=== PATIENT | male | born 1965 | race Caucasian/White ===

== ENCOUNTER 2020-06-26 10:06 | Day surgery (SDC) | payer BC, SELFPAY ==
[2020-06-20 11:34] VITALS: BMI 23.7
[2020-06-26 10:22] VITALS: BP 138/81; PULSE 64; RESP 18; TEMP 36.6; O2SAT 97
--- NOTE | 2020-06-26 11:01 | MHC.SHP ---
Pre-Procedural Eval Section B Chief Complaint: SCREENING Relevant Family History (Specify if Yes): No Relevant Social History: None Present Medications: None Medical History: Significant History (HTN) History of Previous Operations: Relevant previous surgery/procedure and date(s) (inguinal hernia, joint surgeries) Allergies: Allergies Allergy/AdvReac Type Severity Reaction Status Date / Time No Known Allergies Allergy Unverified 06/20/20 11:32 [No Known Allergies*] Review of Systems Sugical H&P ROS: Negative: Constitution, Cardiovascular, Respiratory, Neurological, Psychiatric, Hem-Onc, Allergic/Immunologic, Gastrointestinal, Genitourinary, Musculoskeletal, Integumentary, Endocrine and Eyes/Ears/Nose/Throat Exam Surgical H&P Exam: Normal: HEENT, Normal: Heart, Normal: Lungs, Normal: Extremities, Normal: Abdomen, Normal: Skin and Normal: Neurological Plan Diagnosis/Plan: Unchanged Patient has been examined and remains a candidate for the planned procedure
--- NOTE | 2020-06-26 11:05 | PM.OP ---
Brief Operative Note Date of Service: 06/26/20 Pre-op diagnosis: colon screen Post-op diagnosis: same Procedure: see op note Surgeon: Nathaniel Red MD Anesthesia: MAC Estimated blood loss (mL): 0 Condition: stable Disposition: PACU
--- NOTE | 2020-06-26 11:06 | W.PM.OPN ---
Operative Note Operative Note Date of Service: 06/26/20 Narrative: Operative Information Procedure Description: Colonoscopy COLONOSCOPY Instrument: Olympus variable stiffness pediatric scope 190L Colonoscopy Monitoring: Vital signs and clinical assessment, continuous EKG monitoring, Pulse oximetry, Carbon Dioxide monitoring and blood pressure monitoring were done throughout the procedure. Colon withdrawal time was 8 minutes. Procedure: The patient was placed in the left lateral decubitis position and pre-procedure medications were administered. After a digital rectal examination of the ano-rectum, the video colonoscope was inserted into the rectum and advanced through the colon to the cecum/TI. The colonoscope was slowly withdrawn in a retrograde panoramic fashion and the colon mucosa was carefully examined including a retroflexed view of the rectum. Findings and interventions are described below. Procedure Difficulty:easy Findings: Terminal Ileum-normal Cecum:normal Ascending Colon: normal Transverse Colon -normal Descending Colon:normal Sigmoid Colon: normal Rectum: Retroflexion with small internal hemorrhoids, grade I Anorectum - normal Colon preparation: [place] Bowel Preparation Scale Right colon; 3 Transverse colon: 2 Left colon; 2 (0 = Unprepared colon segment with mucosa not seen due to solid stool that cannot be cleared. 1 = Portion of mucosa of the colon segment seen, but other areas of the colon segment not well seen due to staining, residual stool and/or opaque liquid. 2 = Minor amount of residual staining, small fragments of stool and/or opaque liquid, but mucosa of colon segment seen well. 3 = Entire mucosa of colon segment seen well with no residual staining, small fragments of stool or opaque liquid) Impression and Post Procedure Diagnosis: small internal hemorrhoids Plan: High fiber diet leaflet Avoid straining at stool, epsom salts and sitz bath prn, anusol supps or cream prn Repeat Colonoscopy in 10 years or earlier if clinically indicated Above findings were reviewed with the patient and relevant handouts were provided if indicated.
--- NOTE | 2020-06-26 11:10 | HO.ANESPROP2 ---
Documented by User: Bentley Doe 06/26/20 12:16 [facility] Past Medical History Medical History HTN (hypertension) Surgical History Surgical History History of thumb surgery S/P ACL repair S/P right inguinal hernia repair Social History Social History Smoking Status: Former smoker Smoking Quit Date: 2011 Advance Directives: No Advance Directives Information Provided: No Advance Directives on File: No Meds Allergies Allergy/AdvReac Type Severity Reaction Status Date / Time No Known Allergies Allergy Unverified 06/20/20 11:32 [No Known Allergies*] Home Medications Medication Instructions Recorded Confirmed Type lisinopril 20 mg PO DAILY 06/20/20 06/20/20 History Exam Exam Date and Time: June 26, 2020 1149 Height,Weight and Vital Signs: Height 6 ft 2 in Weight 83.915 kg Last Vital Signs Temp 97.8 F 06/26/20 10:22 Pulse 64 06/26/20 10:22 Resp 18 06/26/20 10:22 BP 138/81 06/26/20 10:22 Pulse Ox 97 06/26/20 10:22 Airway Mallampati Class: II TM Dist: >3cm Neck ROM: Full Assessment and Plan Assessment Anesthesia Assessment: Anesthesia Plan Discussed, PAT Visit and Chart Reviewed Final Anesthetic Review NPO: Yes ASA Class: II Final Preanesthetic Review: No Changes in Pt Med Stat, Meds/Allgs Chart Reviewed, Consent Obtained/Reviewed and Anes Risks/Benef Reviewed Patient Risk: Low Procedure Risk: Low Anesthetic Plan Anesthetic Plan: MAC: Disposition: Standard PACU Documented by User: Felice Sarabia MD 06/26/20 12:18 [facility] Past Medical History Medical History HTN (hypertension) Surgical History Surgical History History of thumb surgery S/P ACL repair S/P right inguinal hernia repair Social History Social History Smoking Status: Former smoker Smoking Quit Date: 2011 Advance Directives: No Advance Directives Information Provided: No Advance Directives on File: No Meds Allergies Allergy/AdvReac Type Severity Reaction Status Date / Time No Known Allergies Allergy Unverified 06/20/20 11:32 [No Known Allergies*] Home Medications Medication Instructions Recorded Confirmed Type lisinopril 20 mg PO DAILY 06/20/20 06/20/20 History
[2020-06-26 11:47] VITALS: BP 116/71; PULSE 70; RESP 17; TEMP 36.1; O2SAT 97
[2020-06-26 12:02] VITALS: BP 140/88; PULSE 62; TEMP 36.1; O2SAT 97
--- NOTE | 2020-06-26 12:44 | HO.POSTANES ---
Post Anesthesia Evaluation Post Anesthesia Evaluation Vital Signs: Vital Signs Temp Pulse Resp BP Pulse Ox 06/26/20 12:02 97 F 62 140/88 H 97 06/26/20 11:47 97 F 70 17 116/71 97 06/26/20 10:22 97.8 F 64 18 138/81 97 Anesthesia: Monitored Mental Status: Awake Pain Control: Satisfactory Nausea/Vomiting: None Hydration: Adequate Anesthesia-Related Issues: No Anes. Related Issues
== END 2020-06-26 12:24 | disposition home or self-care (01) ==
PROVIDERS: Visit Provider Internal Medicine Gastroenterology
PROC: 0DJD8ZZ Inspection of Lower Intestinal Tract, Via Natural or Artificial Opening Endoscopic (ICD-10-PCS; CPT 45378; principal; 2020-06-26 11:30)
DX: Z12.11 Encounter for screening for malignant neoplasm of colon (principal); K64.0 First degree hemorrhoids; I10 Essential (primary) hypertension; Z79.899 Other long term (current) drug therapy; Z87.891 Personal history of nicotine dependence
CPT/HCPCS: 45378

== ENCOUNTER 2021-10-22 09:49 | Outpatient (REF) | payer BC, SELFPAY ==
[2021-10-22 10:52] LABS: Alanine Aminotransferase 17 U/L (0-40); Albumin Level 4.3 g/dL (3.5-5.0); Alkaline Phosphatase 51 U/L (39-117); Anion Gap 12 (12-20); Aspartate Amino Transferase 19 U/L (5-37); Bilirubin Total 0.6 mg/dL (0.0-1.0); Blood Urea Nitrogen 15 mg/dL (9-16); Calcium 9.1 mg/dL (8.4-10.2); Carbon Dioxide 26 mmol/L (22-29); Chloride 105 mmol/L (96-108); Cholesterol 184 mg/dL; Estimated Glomerular Filt Rate > 60; Glucose Fasting 104 mg/dL (60-99); HDL Cholesterol 54 mg/dL; LDL Cholesterol Calculated 119 mg/dl; Potassium 4.5 mmol/L (3.3-5.1); Sodium 138 mmol/L (135-145); Triglycerides 56 mg/dL
[2021-10-22 11:15] LABS: TSH reflex Free T4 1.32 uIU/mL (0.32-4.0)
== END 2021-10-22 09:50 | disposition home or self-care (01) ==
LOC: HO.LAB 09:49
PROVIDERS: PCP Family Medicine; Visit Provider Family Medicine
DX: Z00.00 Encounter for general adult medical examination without abnormal findings (principal)
CPT/HCPCS: 36415; 80053; 80061; 84443

== ENCOUNTER 2021-12-24 09:11 | Outpatient (REF) | payer BC, SELFPAY ==
[2021-12-24 11:04] LABS: Prostate Specific Antigen Scr 0.35 ng/mL (<0.05-4.0)
== END 2021-12-24 09:12 | disposition home or self-care (01) ==
LOC: HO.10HDL 09:11
PROVIDERS: Visit Provider Family Medicine
DX: Z12.5 Encounter for screening for malignant neoplasm of prostate (principal)
CPT/HCPCS: 36415; 84153

== ENCOUNTER 2022-03-18 08:32 | Outpatient (REF) | payer BC, SELFPAY ==
--- NOTE | ~2022-03-18 | CT_ITS ---
CT SINUS WITHOUT CONTRAST CLINICAL INFORMATION: Nasal polyp. COMPARISON: None TECHNIQUE: Multidetector CT acquisition of the sinuses obtained without contrast. This CT examination was performed using dose optimization techniques as appropriate, variously including the following: *Automated exposure control *Adjustment of mA and/or kV according to patient size (this includes techniques or standardized protocols for targeted exams where dose is matched to indication/reason for exam; i.e. extremities or head) *Use of iterative reconstruction technique FINDINGS: There is mild mucosal thickening within the maxillary sinuses bilaterally. The sphenoid sinuses are clear. Mild mucosal thickening within the ethmoid air cells bilaterally and the inferior frontal sinuses bilaterally. There is rightward deviation of the bony cartilaginous nasal septal junction and there is leftward deviation of the posterior bony nasal septum, the latter associated with a leftward directed nasal septal spur. Fovea ethmoidalis and olfactory grooves are symmetric in depth. The bony orbits are intact. Internal carotid arteries remain well covered with bone. Pneumatization of the right optic strut. Mastoid air cells and the middle ear cavities are clear. The TMJs are unremarkable. There is no periapical disease. There are no significant soft tissue findings. Calcified tonsilloliths within the palatine tonsils bilaterally. CT/CT sinus wo con IMPRESSION: - There is mild sinus mucosal disease. - There is rightward deviation of the bony cartilaginous nasal septal junction and there is leftward deviation of the posterior bony nasal septum, the latter associated with a leftward directed nasal septal spur.
== END 2022-03-18 08:33 | disposition home or self-care (01) ==
LOC: HO.CT 08:32
PROVIDERS: PCP Family Medicine; Visit Provider Otolaryngology
DX: J33.0 Polyp of nasal cavity (principal); R43.0 Anosmia
CPT/HCPCS: 70486

== ENCOUNTER 2023-03-11 08:20 | Outpatient (REF) | payer BC, SELFPAY ==
[2023-03-11 11:27] LABS: Prostate Specific Antigen Scr 0.52 ng/mL (<0.05-4.0)
[2023-03-11 11:31] LABS: Alanine Aminotransferase 24 U/L (0-40); Albumin Level 4.2 g/dL (3.5-5.0); Alkaline Phosphatase 54 U/L (39-117); Anion Gap 12 (12-20); Aspartate Amino Transferase 25 U/L (5-37); Bilirubin Total 0.7 mg/dL (0.0-1.0); Blood Urea Nitrogen 13 mg/dL (9-16); Calcium 8.9 mg/dL (8.4-10.2); Carbon Dioxide 25 mmol/L (22-29); Chloride 107 mmol/L (96-108); Cholesterol 160 mg/dL; Estimated Glomerular Filt Rate > 60; Glucose Fasting 102 mg/dL (60-99); HDL Cholesterol 55 mg/dL; LDL Cholesterol Calculated 91 mg/dl; Potassium 4.3 mmol/L (3.3-5.1); Sodium 140 mmol/L (135-145); Total Protein 6.7 g/dL (6.5-8.0); Triglycerides 73 mg/dL
[2023-03-11 11:35] LABS: TSH reflex Free T4 1.57 uIU/mL (0.32-4.0)
[2023-03-11 14:18] LABS: Appearance Urine Clear; Color Urine Yellow; Glucose Urine UA Negative (Negative); Leukocyte Esterase Urine Negative (Negative); Nitrite Urine Negative (Negative); Urine Blood Negative (Negative); Urine Ketones Negative (Negative); Urine Protein Negative (Neg-Trace)
[2023-03-11 14:52] LABS: Creatinine Urine 131.81 mg/dL; Microalbum/Creatinine Ratio Ur 4.5 ug/mg cr
== END 2023-03-11 08:21 | disposition home or self-care (01) ==
LOC: HO.10HDL 08:20
PROVIDERS: Visit Provider Family Medicine
DX: Z00.00 Encounter for general adult medical examination without abnormal findings (principal); Z12.5 Encounter for screening for malignant neoplasm of prostate; I10 Essential (primary) hypertension
CPT/HCPCS: 36415; 80053; 80061; 81003; 82043; 84153; 84443

== ENCOUNTER 2023-03-17 15:53 | Outpatient (AMB) | payer BC, SELFPAY ==
--- NOTE | 2023-03-17 16:11 | MHC.PC.OV ---
Vital Signs 03/17/23 16:13 Height 6 ft 2 in Weight 192 lb 6 oz BMI 24.7 BP 118/76 Blood Pressure Location Lt brachial Position Sitting Pulse 72 Pulse Source Pulse Oximeter Pulse Oximetry (%) 97 Oxygen Delivery Method Room Air Intake Visit Reasons: CPE with f/u labs and health maintenance Intake Note: Patient is here for his physical and to follow up on labs and health maintenance. Allergies No Known Allergies [No Known Allergies*] Allergy (Verified 03/17/23 16:15) Tobacco use date assessed: 09/02/22 Dental Screening Dental Screen Date: 03/17/23 Did you have a dental visit in the last 12 months?: Yes Did you have a dental problem in the last 6 months where you did not have access to dental care?: No Was dental information given to patient?: No HPI CPE with f/u labs and health maintenance HPI Details 57 y/o male presents to f/u CPE-labs via telemedicine. Labs were drawn 03/11/23. Reviewed labs with pt. Elevated fasting glucose of 102. A1c today 03/17/23 is Triglycerides 73. TC 160. LDL 91. HDL 55. Blood pressure today is 118/76. He is on lisinopril 5mg daily. [facility] Medical History HTN (hypertension) Surgical History History of thumb surgery S/P ACL repair S/P right inguinal hernia repair Social History Housing: House Patient Tobacco Use Status: Former Tobacco user e-Cigarette/Vaping Use: Never Used Second Hand Smoke Exposure: No service: No Current occupational status: employed Current occupational exposures/hazards: No Cognitive needs: No Hearing needs: No Vision needs: No Questionnaire Thrive Questionnaire Date Thrive assessed: 09/02/22 ADALBERTO-7 AMB Questionnaire ADALBERTO-7 Date ADALBERTO - 7 assessed: 09/02/22 Source: Developed by Drs. Kelechi Zapata, Anais Wilhelm, Peña Mccloud and colleagues, with an educational lorri from [employer]. Review of Systems Const Denies chills, Denies fatigue, Denies fever(s), Denies headache(s) and Denies weakness Eyes Denies change in vision ENT Denies dizziness, Denies headache(s), Denies hearing loss, Denies nasal congestion, Denies sinus pain, Denies sinus pressure and Denies sore throat Card Denies chest pain, Denies lightheadedness, Denies dyspnea and Denies other (palpitations) Resp Denies cough, Denies dyspnea and Denies wheezing GI Denies abdominal pain, Denies melena, Denies hematochezia, Denies change in bowel habits, Denies dyspepsia and Denies nausea Denies hematuria and Denies dysuria Musc Denies abnormal gait, Denies myalgias, Denies arthralgias, Denies numbness and Denies tingling Skin/Breast Denies rash, Denies unusual bruising and Denies wounds Neuro Denies abnormal gait, Denies dizziness, Denies headache(s), Denies memory loss, Denies numbness, Denies Sensory deficit (Neuro), Denies tingling and Denies weakness Psych Denies anxiety, Denies depression and Denies memory loss Endo Denies cold intolerance, Denies fatigue, Denies heat intolerance, Denies polydipsia and Denies polyuria Garry/Lymph Denies easy bleeding and Denies easy bruising Aller/Immun Denies wheezing Physical exam (Primary Care) Vital Signs: Last Vital Signs Pulse 72 03/17/23 16:13 BP 118/76 03/17/23 16:13 Pulse Ox 97 03/17/23 16:13 Oxygen Delivery Method Room Air 03/17/23 16:13 BMI result Body Mass Index 24.7 Tobacco/Smoking Status: Tobacco use Status Tobacco use date assessed 09/02/22 03/17/23 16:13 Patient Tobacco Use Status Former Tobacco user 03/17/23 16:13 e-Cigarette/Vaping Use Never Used 03/17/23 16:13 Thrive Assessment: Date of Thrive Assessment Date Thrive assessed 09/02/22 03/17/23 16:13 Const General: no acute distress, well developed, alert and awake Nutritional Appearance: well nourished Orientation/consciousness: patient oriented x3 HENMT Head: Yes normocephalic and Yes atraumatic Ears: hearing grossly normal bilaterally and TM's normal bilaterally General nose exam: Normal external nose present and Normal nares present Mouth: Normal oral and palatal mucosa present and moist mucous membranes Teeth and gingiva: dentition normal Throat: Yes posterior oropharynx normal Eyes General: appearance normal, both eyes and all related structures Pupils: Equal, round and reactive pupils present and Pupil accommodation reflex normal EOM: EOMs intact bilaterally Neck Neck: Yes normal visual inspection, Yes no lymphadenopathy and Yes trachea midline Thyroid: Thyroid normal Carotids: no bruits Lymphatic: no lymphadenopathy noted Chest Chest palpation & inspection: normal inspection of the chest Resp Effort & Inspection: normal respiratory effort Auscultation: clear to auscultation bilaterally Cardio Rate: regular rate Rhythm: regular rhythm Heart sounds: S1 normal heart sound present, S2 normal heart sound present, no gallops, no murmurs and no rubs Bruits: no abdominal aortic bruits and no carotid bruits GI Palpation (GI): No Abdominal aortic bruit present, Soft to palpation, nontender, No hepatosplenomegaly present and No Rebound tenderness present Auscultation: normal bowel sounds General: Yes no CVA tenderness Back/Spine/Pelvis Back: no CVA tenderness Cervical Spine: cervical ROM normal and No Cervical spine tenderness Thoracic/Lumbar Spine: thoraco-lumbar ROM normal, No pain with thoraco-lumbar ROM, No thoracic spinal tenderness and No lumbar spinal tenderness Skin Lesions: no lesions Rashes: no rashes Trauma: no lacerations or abrasions Wounds: no wounds Nails: normal Neuro General: patient oriented x3 Cranial nerves: Yes Equal, round and reactive pupils present Cognition (Neuro): normal cognition Gait exam (Neuro): Normal gait present Motor exam (neuro): 5/5 motor strength present throughout Sensory Exam: No Sensory deficit (Neuro) Deep tendon reflexes (DTR's): Right patellar reflex intensity grade: 2+ and Left patellar reflex intensity grade: 2+ Extrem General: Yes normal to inspection and No edema Psych Appearance: grossly normal Affect: normal affect Attitude: cooperative Thought process: Normal thought process present Assessment and Plan Assessment & Plan (1) Adult general medical exam: Code(s): Z00.00 - Encounter for general adult medical examination without abnormal findings Plan: 57-year-old male presents for complete physical exam Encouraged healthy diet with active lifestyle and plenty of exercise (2) Elevated fasting glucose: Code(s): R73.01 - Impaired fasting glucose Plan: Consistently mildly elevated fasting blood sugar A1c today is (3) HTN (hypertension): Code(s): I10 - Essential (primary) hypertension Plan: Blood pressure well controlled. Goal is less than 140/90 Continue current medication regimen (4) Screening for colon cancer: Code(s): Z12.11 - Encounter for screening for malignant neoplasm of colon Plan: Up-to-date Follow-up with Dr. Thorne on as recommended (5) Screening for prostate cancer: Code(s): Z12.5 - Encounter for screening for malignant neoplasm of prostate Plan: PSA is within normal limits (6) Sun-damaged skin: Code(s): L57.8 - Other skin changes due to chronic exposure to nonionizing radiation Plan: Patient sees Dr. Perez dermatology. Will request she see him again for a skin survey Orders: Referrals Dermatology Referral D48.5 - Neoplasm of uncertain behavior of skin, L57.8 - Other skin changes due to chronic exposure to nonionizing radiation Coding Level of Care Code Est Pt Level 3 (90825) Est Pt Prev Care 40-64y(59380) Diagnoses Adult general medical exam Z00.00 Elevated fasting glucose R73.01 HTN (hypertension) I10 Screening for colon cancer Z12.11 Screening for prostate cancer Z12.5 Sun-damaged skin L57.8
[2023-03-17 16:13] VITALS: BP 118/76; PULSE 72; O2SAT 97; BMI 24.7
== END 2023-03-17 16:51 | disposition home or self-care (01) ==
PROVIDERS: Visit Provider Family Medicine
DX: Z00.00 Encounter for general adult medical examination without abnormal findings (principal); R73.01 Impaired fasting glucose; I10 Essential (primary) hypertension; L57.8 Other skin changes due to chronic exposure to nonionizing radiation
CPT/HCPCS: 83036; 99396

== ENCOUNTER 2024-07-19 16:03 | Outpatient (AMB) | payer BC, SELFPAY ==
--- NOTE | 2024-07-19 16:24 | MHC.PC.OV ---
Vital Signs 07/19/24 16:25 Height 6 ft 2 in Weight 201 lb BMI 25.8 BP 110/70 Blood Pressure Location Rt brachial Position Sitting Respiration 14 Pulse 93 Pulse Source Pulse Oximeter Temp 97.8 F Temp Source Oral Pulse Oximetry (%) 96 Oxygen Delivery Method Room Air Intake Visit Reasons: Med review Intake Note: B/P med f/u Allergies No Known Allergies [No Known Allergies*] Allergy (Verified 07/19/24 16:24) Tobacco use date assessed: 09/02/22 Dental Screening Dental Screen Date: 03/17/23 HPI Med review HPI Details 58 y/o male presents to f/u hypertension, elevated fasting blood sugars. Last A1c 5.4%. A1c today 07/19/24 is 5.8%. Blood pressure today 110/70. He is on lisinopril 5mg daily. [facility] Medical History HTN (hypertension) Surgical History History of thumb surgery S/P ACL repair S/P right inguinal hernia repair Social History Housing: House Patient Tobacco Use Status: Former Tobacco user e-Cigarette/Vaping Use: Never Used Second Hand Smoke Exposure: No service: No Current occupational status: employed Current occupational exposures/hazards: No Cognitive needs: No Hearing needs: No Vision needs: No Questionnaire PHQ-9 Over the last 2 weeks, how often have you been bothered by any of the following problems? 1. Little interest or pleasure in doing things: not at all 2. Feeling down, depressed, or hopeless: not at all 3. Trouble falling or staying asleep, or sleeping too much: not at all 4. Feeling tired or having little energy: not at all 5. Poor appetite or overeating: not at all 6. Feeling bad about yourself - or that you are a failure or have let yourself or your family down: not at all 7. Trouble concentrating on things, such as reading the newspaper or watching television: not at all 8. Moving or speaking so slowly that other people could have noticed. Or the opposite - being so fidgety or restless that you have been moving around a lot more than usual: not at all 9. Thoughts that you would be better off or of hurting yourself in some way: not at all Total score: 0 Source: Developed by Drs. Kelechi Zapata, Anais Wilhelm, Peña Mccloud and colleagues, with an educational lorri from [employer]. Thrive Questionnaire Date Thrive assessed: 07/13/24 I am a: Patient What is your living situation today?: I have a steady place to live Within the past 12 months, did the food you bought not last and you didn't have the money to get more?: Never true Within the past 12 months, did you worry whether your food would run out before you got money to buy more?: Never true Do you have trouble paying for medicines?: No Do you have trouble getting transportation to medical appointments?: No Do you have trouble paying your heating and electricity bill?: No Do you have trouble taking care of your child, family member or friend?: No Do you have trouble with day-to-day activities such as bathing, preparing meals, shopping, managing finances, etc.?: No Are you currently unemployed and looking for a job?: No Are you interested in more education?: No Please select the resources that you would like help with: None Currently or been in a relationship where the following occur: No concerns reported THRIVE Score: 0 AUDIT C Alcohol Use Questionnaire (AUDIT-C) 1. How often do you have a drink containing alcohol?: 2-3 times a week 2. How many drinks containing alcohol do you have on a typical day when you are drinking?: 1 or 2 3. How often do you have six or more drinks on one occasion?: Less than monthly Total Score: 4 ADALBERTO-7 AMB Questionnaire ADALBERTO-7 Date ADALBERTO - 7 assessed: 09/02/22 Feeling nervous, anxious, or on edge: 0 = Not at all Not being able to stop or control worryin = Not at all Worrying too much about different things: 0 = Not at all Trouble relaxin = Not at all Being so restless that it is hard to sit still: 0 = Not at all Becoming easily annoyed or irritable: 0 = Not at all Feeling afraid as if something awful might happen: 0 = Not at all Total ADALBERTO-7 score (0-4 normal; 5-9 mild; 10-14 moderate; 15-21 severe): 0 Source: Developed by Drs. Kelechi Zapata, Anais Wilhelm, Peña Mccloud and colleagues, with an educational lorri from [employer]. Review of Systems Const Denies chills, Denies fatigue, Denies fever(s), Denies headache(s) and Denies weakness ENT Denies dizziness and Denies headache(s) Card Denies dyspnea Resp Denies cough, Denies dyspnea, Denies wheezing and Denies other (shortness of breath) Musc Denies numbness and Denies tingling Neuro Denies dizziness, Denies headache(s), Denies numbness, Denies tingling and Denies weakness Psych Denies anxiety and Denies depression Endo Denies fatigue Aller/Immun Denies wheezing Physical exam (Primary Care) Vital Signs: Last Vital Signs Temp 97.8 F 07/19/24 16:25 Pulse 93 07/19/24 16:25 Resp 14 07/19/24 16:25 BP 110/70 07/19/24 16:25 Pulse Ox 96 07/19/24 16:25 Oxygen Delivery Method Room Air 07/19/24 16:25 BMI result Body Mass Index 25.8 Tobacco/Smoking Status: Tobacco use Status Tobacco use date assessed 09/02/22 07/19/24 16:28 Patient Tobacco Use Status Former Tobacco user 07/19/24 16:28 e-Cigarette/Vaping Use Never Used 07/19/24 16:28 PHQ-9: PHQ-9 Score PHQ-9: Total score 0 07/19/24 17:00 Thrive Assessment: Date of Thrive Assessment Date Thrive assessed 07/13/24 07/19/24 16:28 Currently or been in a relationship where the following occur: No concerns reported Const General: well developed; No acute distress Nutritional Appearance: well nourished Orientation/consciousness: patient oriented x3 HENMT Head: Yes normocephalic and Yes atraumatic Eyes General: appearance normal, both eyes and all related structures Pupils: Equal, round and reactive pupils present EOM: EOMs intact bilaterally Resp Effort & Inspection: normal respiratory effort Auscultation: clear to auscultation bilaterally Cardio Rate: regular rate Rhythm: regular rhythm Heart sounds: S1 normal heart sound present, S2 normal heart sound present, no gallops, no murmurs and no rubs Neuro General: patient oriented x3 and gait normal Cranial nerves: Yes Equal, round and reactive pupils present Psych Affect: normal affect Coding Level of Care Code Est Pt Level 3 (71572) Diagnoses HTN (hypertension) I10 Elevated fasting glucose R73.01 Pre-diabetes R73.03 Assessment & Plan Assessment & Plan (1) HTN (hypertension): Code(s): I10 - Essential (primary) hypertension Category: Medical Plan: Blood?pressure?is?well?controlled.??Goal?is?less?than?140/90 Continue?current?medication (2) Elevated fasting glucose: Code(s): R73.01 - Impaired fasting glucose Category: Medical Plan: A1c?last?year?was?5.4%?and?he?has?some?elevated Fasting?blood?sugars. A1c?today: 5.9% - See below (3) Pre-diabetes: Code(s): R73.03 - Prediabetes Category: Medical Plan: A1c?now?5.9%;?pre?diabetes Encouraged?a?diet?lower?in?sugars?and?starches He?is?working?on?exercise?and?weight?loss Will?continue?to?follow?and?recheck?in?a?few?months Orders: Orders Microalbumin, Random (w Creat) Today I10 - Essential (primary) hypertension TSH reflex Free T4 Today Z00.00 - Encounter for general adult medical examination without abnormal findings Comprehensive [place]. Panel Fast Today Z00.00 - Encounter for general adult medical examination without abnormal findings Prostate Specific Antigen Scr Today Z12.5 - Encounter for screening for malignant neoplasm of prostate Lipid Panel Today Z00.00 - Encounter for general adult medical examination without abnormal findings UA and rflx microscopic Today Z00.00 - Encounter for general adult medical examination without abnormal findings Medications: Refilled lisinopril 5 mg PO DAILY 90 days 90 tabs 4RF
[2024-07-19 16:25] VITALS: BP 110/70; PULSE 93; RESP 14; TEMP 36.6; O2SAT 96; BMI 25.8
== END 2024-07-19 17:12 | disposition home or self-care (01) ==
PROVIDERS: PCP Family Medicine; Visit Provider Family Medicine
DX: R73.01 Impaired fasting glucose (principal)

== ENCOUNTER → 2024-07-19 16:03 | Outpatient (BNVA) | payer BC, SELFPAY | PROVIDERS: PCP Family Medicine; Visit Provider Family Medicine | DX: I10 Essential (primary) hypertension (principal); R73.01 Impaired fasting glucose; R73.03 Prediabetes | CPT/HCPCS: 83036; 96127 ==

== ENCOUNTER 2024-08-02 08:24 | Outpatient (REF) | payer BC, SELFPAY ==
[2024-08-02 10:54] LABS: Alanine Aminotransferase 29 U/L (0-40); Albumin Level 4.4 g/dL (3.5-5.0); Alkaline Phosphatase 55 U/L (39-117); Anion Gap 8 (12-20); Aspartate Amino Transferase 31 U/L (5-37); Bilirubin Total 0.8 mg/dL (0.0-1.0); Blood Urea Nitrogen 21 mg/dL (9-16); Calcium 8.5 mg/dL (8.4-10.2); Carbon Dioxide 28 mmol/L (22-29); Chloride 106 mmol/L (96-108); Cholesterol 167 mg/dL (<200); Estimated Glomerular Filt Rate > 60; Glucose Fasting 101 mg/dL (60-99); HDL Cholesterol 52 mg/dL (>40); LDL Cholesterol Calculated 102 mg/dL (<100); Potassium 4.3 mmol/L (3.3-5.1); Sodium 138 mmol/L (135-145); Total Protein 7.2 g/dL (6.5-8.0); Triglycerides 65 mg/dL (<150)
[2024-08-02 11:04] LABS: Prostate Specific Antigen Scr 0.55 ng/mL (<0.05-4.0)
[2024-08-02 11:09] LABS: TSH reflex Free T4 1.46 uIU/mL (0.32-4.0)
[2024-08-02 11:45] LABS: Appearance Urine Clear; Color Urine Yellow; Glucose Urine UA Negative (Negative); Leukocyte Esterase Urine Negative (Negative); Nitrite Urine Negative (Negative); PH 5.5 (5.0-9.0); Specific Gravity - Urine 1.025 (1.005-1.025); Urine Blood Negative (Negative); Urine Ketones Negative (Negative); Urine Protein Negative (Neg-Trace)
[2024-08-02 12:16] LABS: Creatinine Urine 159.56 mg/dL; Microalbum/Creatinine Ratio Ur 7.5 ug/mg cr (<30)
== END 2024-08-02 08:25 | disposition home or self-care (01) ==
LOC: HO.10HDL 08:24
PROVIDERS: Visit Provider Family Medicine
DX: Z00.00 Encounter for general adult medical examination without abnormal findings (principal); Z12.5 Encounter for screening for malignant neoplasm of prostate; I10 Essential (primary) hypertension
CPT/HCPCS: 36415; 80053; 80061; 81003; 82043; 82570; 84153; 84443

== ENCOUNTER 2024-08-13 13:15 | Outpatient (AMB) | payer BC, SELFPAY ==
--- NOTE | 2024-08-13 13:13 | A.OFFPC_ITS ---
Intake Visit Reasons: f/u labs via telemedicine Intake Note: lab review Allergies No Known Allergies [No Known Allergies*] Allergy (Verified 08/13/24 13:14) Tobacco use date assessed: 09/02/22 Dental Screening Dental Screen Date: 03/17/23 HPI f/u labs via telemedicine HPI Details 58 y/o male presents to f/u labs via tel emedicine. Labs drawn 08/02/24. Reviewed labs with pt. Fasting glucose 101 and last A1c 07/19/24 5.9%. Triglycerides 65. TC 167. LDL 102. HDL 52. PSA 0.55. PFSH Medical History HTN (hypertension) Surgical History History of thumb surgery S/P ACL repair S/P right inguinal hernia repair Social History Housing: House Patient Tobacco Use Status: Former Tobacco user e-Cigarette/Vaping Use: Never Used Second Hand Smoke Exposure: No service: No Current occupational status: employed Current occupational exposures/hazards: No Cognitive needs: No Hearing needs: No Vision needs: No Questionnaire Thrive Questionnaire Date Thrive assessed: 07/13/24 ADALBERTO-7 AMB Questionnaire ADALBERTO-7 Date ADALBERTO - 7 assessed: 09/02/22 Source: Developed by Drs. Kelechi Zapata, Anais Wilhelm, Peña Mccloud and colleagues, with an educational lorri from [employer]. Review of Systems Const Denies chills, Denies fatigue, Denies fever(s), Denies headache(s) and Denies weakness ENT Denies dizziness and Denies headache(s) Card Denies dyspnea Resp Denies cough, Denies dyspnea, Denies wheezing and Denies other (shortness of breath) Musc Denies numbness and Denies tingling Neuro Denies dizziness, Denies headache(s), Denies numbness, Denies tingling and Denies weakness Psych Denies anxiety and Denies depression Endo Denies fatigue Aller/Immun Denies wheezing Physical exam (Primary Care) Tobacco/Smoking Status: Tobacco use Status Tobacco use date assessed 09/02/22 08/13/24 13:15 Patient Tobacco Use Status Former Tobacco user 08/13/24 13:15 e-Cigarette/Vaping Use Never Used 08/13/24 13:15 Thrive Assessment: Date of Thrive Assessment Date Thrive assessed 07/13/24 08/13/24 13:15 Telehealth Telehealth Telehealth Platform: Telephone Location of provider rendering services: practice address Location of patient: address on file Patient Identification confirmed using: Name, : Yes Telehealth method: voice only Patient verbally consented to treatment: Yes Patient verbally consented to billing insurance company: Yes Patient informed of any privacy concerns related to visit: Yes Minutes spent on Phone/Video with Pt.: 5 Coding Level of Care Code Tele Est Pt Level 2 (39920) Diagnoses Pre-diabetes R73.03 Elevated LDL cholesterol level E78.00 Screening for prostate cancer Z12.5 Assessment & Plan Assessment & Plan (1) Pre-diabetes: Code(s): R73.03 - Prediabetes Category: Medical Plan: Encouraged?diet?lower?in?sugars?and?starches (2) Elevated LDL cholesterol level: Code(s): E78.00 - Pure hypercholesterolemia, unspecified Category: Medical Plan: Mildly?elevated?LDL?cholesterol.??HDL?ratios?good?however Continue?working?at?a?diet?low?in?saturated?fats?and?cholesterol (3) Screening for prostate cancer: Code(s): Z12.5 - Encounter for screening for malignant neoplasm of prostate Category: Medical Plan: PSA?is?within?normal?limits.??Continue?annual?screening
== END 2024-08-13 17:05 | disposition home or self-care (01) ==
LOC: HO.HMCFM 13:15
PROVIDERS: PCP Family Medicine; Visit Provider Family Medicine
DX: R73.03 Prediabetes (principal); E78.00 Pure hypercholesterolemia, unspecified; Z12.5 Encounter for screening for malignant neoplasm of prostate

== ENCOUNTER 2024-12-06 08:20 | Outpatient (AMB) | payer BC, SELFPAY ==
--- NOTE | 2024-12-06 08:43 | MHC.PC.OV ---
Vital Signs 12/06/24 08:45 Height 6 ft 2 in Weight 187 lb 2 oz BMI 24.0 BP 110/60 Blood Pressure Location Lt brachial Position Sitting Respiration 14 Pulse 69 Pulse Source Pulse Oximeter Temp 97.9 F Temp Source Oral Pulse Oximetry (%) 98 Oxygen Delivery Method Room Air Intake Visit Reasons: f/u Pre DM, reschedule Intake Note: patient is scheduled to follow up on dm [employer] Professor Required: No Allergies No Known Allergies [No Known Allergies*] Allergy (Verified 12/06/24 08:45) Tobacco use date assessed: 09/02/22 Dental Screening Dental Screen Date: 03/17/23 HPI f/u Pre DM, reschedule HPI Details 59 y/o male presents to f/u lipids, pre-diabetes. Last A1c 5.9%. A1c today 12/06/24 is 5.6%. No recent lipids to review. Blood pressure today 110/60, 69p. He is on lisinopril 5mg daily. [facility] Medical History HTN (hypertension) Surgical History History of thumb surgery S/P ACL repair S/P right inguinal hernia repair Social History Housing: House Patient Tobacco Use Status: Former Tobacco user e-Cigarette/Vaping Use: Never Used Second Hand Smoke Exposure: No service: No Current occupational status: employed Current occupational exposures/hazards: No Cognitive needs: No Hearing needs: No Vision needs: No Questionnaire PHQ-9 Over the last 2 weeks, how often have you been bothered by any of the following problems? 1. Little interest or pleasure in doing things: not at all 2. Feeling down, depressed, or hopeless: not at all 3. Trouble falling or staying asleep, or sleeping too much: not at all 4. Feeling tired or having little energy: not at all 5. Poor appetite or overeating: not at all 6. Feeling bad about yourself - or that you are a failure or have let yourself or your family down: not at all 7. Trouble concentrating on things, such as reading the newspaper or watching television: not at all 8. Moving or speaking so slowly that other people could have noticed. Or the opposite - being so fidgety or restless that you have been moving around a lot more than usual: not at all 9. Thoughts that you would be better off or of hurting yourself in some way: not at all Total score: 0 Depression Screening Interpretation: Negative Depression Screening Done: Yes 46432 - PHQ-9 Billing: Yes Source: Developed by Drs. Kelechi Zapata, Anais Wilhelm, Peña Mccloud and colleagues, with an educational lorri from [employer]. Thrive Questionnaire Date Thrive assessed: 10/11/24 I am a: Patient What is your living situation today?: I have a steady place to live Within the past 12 months, did the food you bought not last and you didn't have the money to get more?: Never true Within the past 12 months, did you worry whether your food would run out before you got money to buy more?: Never true Do you have trouble paying for medicines?: No Do you have trouble getting transportation to medical appointments?: No Do you have trouble paying your heating and electricity bill?: No Do you have trouble taking care of your child, family member or friend?: No Do you have trouble with day-to-day activities such as bathing, preparing meals, shopping, managing finances, etc.?: No Are you currently unemployed and looking for a job?: No Are you interested in more education?: No Please select the resources that you would like help with: None Currently or been in a relationship where the following occur: No concerns reported THRIVE Score: 0 ADALBERTO-7 AMB Questionnaire ADALBERTO-7 Date ADALBERTO - 7 assessed: 12/06/24 Feeling nervous, anxious, or on edge: 0 = Not at all Not being able to stop or control worryin = Not at all Worrying too much about different things: 0 = Not at all Trouble relaxin = Not at all Being so restless that it is hard to sit still: 0 = Not at all Becoming easily annoyed or irritable: 0 = Not at all Feeling afraid as if something awful might happen: 0 = Not at all Total ADALBERTO-7 score (0-4 normal; 5-9 mild; 10-14 moderate; 15-21 severe): 0 Source: Developed by Drs. Kelechi Zapata, Anais Wilhelm, Peña Mccloud and colleagues, with an educational lorri from [employer]. ADALBERTO-7 Assessment Billing ADALBERTO-7 Assessment Tool: ADALBERTO-7 Assessment 48902 Review of Systems Const Denies chills, Denies fatigue, Denies fever(s), Denies headache(s) and Denies weakness ENT Denies dizziness and Denies headache(s) Card Denies dyspnea Resp Denies cough, Denies dyspnea, Denies wheezing and Denies other (shortness of breath) Musc Denies numbness and Denies tingling Neuro Denies dizziness, Denies headache(s), Denies numbness, Denies tingling and Denies weakness Psych Denies anxiety and Denies depression Endo Denies fatigue Aller/Immun Denies wheezing Physical exam (Primary Care) Vital Signs: Last Vital Signs Temp 97.9 F 12/06/24 08:45 Pulse 69 12/06/24 08:45 Resp 14 12/06/24 08:45 BP 110/60 12/06/24 08:45 Pulse Ox 98 12/06/24 08:45 Oxygen Delivery Method Room Air 12/06/24 08:45 BMI result Body Mass Index 24.0 Tobacco/Smoking Status: Tobacco use Status Tobacco use date assessed 09/02/22 12/06/24 08:48 Patient Tobacco Use Status Former Tobacco user 12/06/24 08:48 e-Cigarette/Vaping Use Never Used 12/06/24 08:48 PHQ-9: PHQ-9 Score PHQ-9: Total score 0 12/06/24 08:52 Depression Screening Interpretation: Negative Thrive Assessment: Date of Thrive Assessment Date Thrive assessed 10/11/24 12/06/24 08:48 Currently or been in a relationship where the following occur: No concerns reported Const General: well developed; No acute distress Nutritional Appearance: well nourished Orientation/consciousness: patient oriented x3 HENMT Head: Yes normocephalic and Yes atraumatic Eyes General: appearance normal, both eyes and all related structures Pupils: Equal, round and reactive pupils present EOM: EOMs intact bilaterally Resp Effort & Inspection: normal respiratory effort Neuro General: patient oriented x3 and gait normal Cranial nerves: Yes Equal, round and reactive pupils present Psych Affect: normal affect Coding Level of Care Code Est Pt Level 4 (91070) Diagnoses Pre-diabetes R73.03 Elevated LDL cholesterol level E78.00 HTN (hypertension) I10 Additional Codes ADALBERTO-7 Assessment Billing - ADALBERTO-7 Assessment Tool: ADALBERTO-7 Assessment 55375 ([id number]) PHQ-9 - 70116 - PHQ-9 Billing: Yes ([id number]) Assessment & Plan Assessment & Plan (1) Pre-diabetes: Code(s): R73.03 - Prediabetes Category: Medical Plan: A1c?is?improved?and?now?at?5.6% Continue?working?at?a?diet?low?in?sugars?and?starches Encouraged?exercise Continue weight?control Will?continue?to?monitor (2) Elevated LDL cholesterol level: Code(s): E78.00 - Pure hypercholesterolemia, unspecified Category: Medical Plan: Will?recheck?lipids?with?next?blood?draw?prior?to?next?visit (3) HTN (hypertension): Code(s): I10 - Essential (primary) hypertension Category: Medical Plan: Blood?pressure?is?controlled.??Goal?is?less?than?140/90 Continue?current?medication Orders: Orders Comprehensive [place]. Panel Fast Today E78.00 - Pure hypercholesterolemia, unspecified, Z00.00 - Encounter for general adult medical examination without abnormal findings Lipid Panel Today E78.00 - Pure hypercholesterolemia, unspecified, Z00.00 - Encounter for general adult medical examination without abnormal findings Hemoglobin A1c Today R73.01 - Impaired fasting glucose, R73.03 - Prediabetes Microalbumin, Random (w Creat) Today I10 - Essential (primary) hypertension, R73.03 - Prediabetes
[2024-12-06 08:45] VITALS: BP 110/60; PULSE 69; RESP 14; TEMP 36.6; O2SAT 98; BMI 24.0
== END 2024-12-06 09:10 | disposition home or self-care (01) ==
LOC: HO.HMCFM 08:21
PROVIDERS: PCP Family Medicine; Visit Provider Family Medicine
DX: R73.03 Prediabetes (principal)

== ENCOUNTER → 2024-12-06 08:20 | Outpatient (BNVA) | payer BC, SELFPAY | PROVIDERS: PCP Family Medicine; Visit Provider Family Medicine | DX: R73.03 Prediabetes (principal); E78.00 Pure hypercholesterolemia, unspecified; I10 Essential (primary) hypertension | CPT/HCPCS: 83036; 96127 ==

== ENCOUNTER 2024-12-18 09:14 | Outpatient (REF) | payer BC, SELFPAY ==
[2024-12-18 14:10] LABS: MANUAL DIFF FLAG NO
[2024-12-18 14:14] LABS: Basophils Percent Auto 0.6 % (0-2); Eosinophils Absolute Auto 0.4 X10*3/uL (0.0-0.4); Eosinophils Percent Auto 5.1 % (0-4); Hematocrit 44.4 % (42.0-52.0); Hemoglobin 14.9 g/dl (14.0-18.0); Imm Gran Abs Auto 0.02 X10*3/uL (0.00-0.03); Imm Gran Pct Auto 0.3 % (0.0-0.4); Lymphocytes Absolute Auto 1.5 X10*3/uL (1.2-4.9); Lymphocytes Percent Auto 21.4 % (20-40); Mean Corpuscular HGB Conc 33.6 g/dl (31.0-36.0); Mean Corpuscular Hemoglobin 29.4 pg (27.0-33.0); Mean Corpuscular Volume 87.6 fL (80.0-98.0); Mean Platelet Volume 9.5 fL (9.4-12.4); Monocytes Absolute Auto 0.6 X10*3/uL (0.1-1.2); Monocytes Percent Auto 7.6 % (2-11); Neutrophils Absolute Auto 4.7 x10*3/uL (2.0-8.3); Platelet Count 247 X10*3/uL (160-400); Red Blood Count 5.07 X10*6/uL (4.60-5.80); Red Cell Distribution Width 12.7 % (11.0-16.0); White Blood Count 7.2 X10*3/uL (4.8-10.8)
[2024-12-18 14:37] LABS: Alanine Aminotransferase 20 U/L (0-40); Albumin Level 4.4 g/dL (3.5-5.0); Alkaline Phosphatase 62 U/L (39-117); Anion Gap 11 (12-20); Aspartate Amino Transferase 24 U/L (5-37); Bilirubin Total 0.5 mg/dL (0.0-1.0); Blood Urea Nitrogen 20 mg/dL (9-16); Calcium 9.2 mg/dL (8.4-10.2); Carbon Dioxide 28 mmol/L (22-29); Chloride 107 mmol/L (96-108); Estimated Glomerular Filt Rate > 60; Glucose Random 95 mg/dL (60-115); Potassium 4.2 mmol/L (3.3-5.1); Sodium 142 mmol/L (135-145)
== END 2024-12-18 09:15 | disposition home or self-care (01) ==
LOC: HO.HMGCLDS 09:14
PROVIDERS: PCP Family Medicine; Visit Provider Family Medicine
DX: R10.31 Right lower quadrant pain (principal)
CPT/HCPCS: 36415; 80053; 81003; 85025

== ENCOUNTER 2024-12-18 09:14 | Outpatient (AMB) | payer BC, SELFPAY ==
[2024-12-18 09:37] VITALS: BP 106/64; PULSE 68; RESP 15; TEMP 36.8; O2SAT 98; BMI 24.0
--- NOTE | 2024-12-18 09:37 | A.OFFPC_ITS ---
Vital Signs 12/18/24 09:37 Height 6 ft 2 in Weight 187 lb BMI 24.0 Intake Visit Reasons: EP- abdominal pain Allergies No Known Allergies [No Known Allergies*] Allergy (Verified 12/06/24 08:45) Tobacco use date assessed: 09/02/22 Dental Screening Dental Screen Date: 03/17/23 [facility] Medical History HTN (hypertension) Surgical History History of thumb surgery S/P ACL repair S/P right inguinal hernia repair Social History Housing: House Patient Tobacco Use Status: Former Tobacco user e-Cigarette/Vaping Use: Never Used Second Hand Smoke Exposure: No service: No Current occupational status: employed Current occupational exposures/hazards: No Cognitive needs: No Hearing needs: No Vision needs: No Questionnaire Thrive Questionnaire Date Thrive assessed: 10/11/24 ADALBERTO-7 AMB Questionnaire ADALBERTO-7 Date ADALBERTO - 7 assessed: 12/06/24 Source: Developed by Drs. Kelechi Zapata, Anais Wilhelm, Peña Mccloud and colleagues, with an educational lorri from [employer]. Physical exam (Primary Care) Tobacco/Smoking Status: Tobacco use Status Tobacco use date assessed 09/02/22 12/06/24 08:48 Patient Tobacco Use Status Former Tobacco user 12/06/24 08:48 e-Cigarette/Vaping Use Never Used 12/06/24 08:48 Thrive Assessment: Date of Thrive Assessment Date Thrive assessed 10/11/24 12/06/24 08:48 Coding
--- NOTE | 2024-12-18 09:41 | AM.OFFWIN_ITS ---
Intake Vital Signs 12/18/24 09:37 Height 6 ft 2 in Weight 187 lb BMI 24.0 BP 106/64 Blood Pressure Location Lt brachial Position Sitting Respiration 15 Pulse 68 Pulse Source Pulse Oximeter Temp 98.3 F Temp Source Oral Pulse Oximetry (%) 98 Oxygen Delivery Method Room Air Intake Visit Reasons: EP- abdominal pain Intake Note: Pt is here today c/o RLQ pain x1mo. Patient Tobacco Use Status: Former Tobacco user Allergies No Known Allergies [No Known Allergies*] Allergy (Verified 12/18/24 09:46) Medication List - Last Reconciled 12/18/24 by Sánchez Jean MD lisinopril 5 mg PO DAILY 90 days HPI EP- abdominal pain HPI Details Patient has complaint of right lower quadrant pain x1 month. He has not tried anything for this Pain is fairly constant but does not seem to worsen with food or bowel movements. No fevers or chills No blood in stools. No blood in urine PFSH Medical History HTN (hypertension) Surgical History History of thumb surgery S/P ACL repair S/P right inguinal hernia repair Social History Housing: House Patient Tobacco Use Status: Former Tobacco user e-Cigarette/Vaping Use: Never Used Second Hand Smoke Exposure: No service: No Current occupational status: employed Current occupational exposures/hazards: No Cognitive needs: No Hearing needs: No Vision needs: No Review of Systems Const Denies chills, Denies fatigue, Denies fever(s), Denies headache(s) and Denies weakness ENT Denies dizziness and Denies headache(s) Card Denies dyspnea Resp Denies cough, Denies dyspnea, Denies wheezing and Denies other ( shortness of breath) GI Details: See HPI Details: No dysuria Musc Denies numbness and Denies tingling Neuro Denies dizziness, Denies headache(s), Denies numbness, Denies tingling, Denies paresthesias and Denies weakness Psych Denies anxiety and Denies depression Endo Denies fatigue Aller/Immun Denies wheezing Physical Exam Vital Signs: Last Vital Signs Temp 98.3 F 12/18/24 09:37 Pulse 68 12/18/24 09:37 Resp 15 12/18/24 09:37 BP 106/64 12/18/24 09:37 Pulse Ox 98 12/18/24 09:37 Oxygen Delivery Method Room Air 12/18/24 09:37 BMI result Body Mass Index 24.0 Const General: no acute distress and well developed Nutritional Appearance: well nourished Orientation/consciousness: patient oriented x3 HEENT Head: Yes normocephalic and Yes atraumatic Eyes General: appearance normal, both eyes and all related structures Pupils: Equal, round and reactive pupils present EOM: EOMs intact bilaterally Resp Effort & Inspection: normal respiratory effort Auscultation: clear to auscultation bilaterally Cardio Rate: regular rate Rhythm: regular rhythm Heart sounds: S1 normal heart sound present, S2 normal heart sound present, no gallops, no murmurs and no rubs GI Other: Right lower quadrant tenderness to palpation without rebound. Normal bowel sounds No CVA TTP No suprapubic TTP No hernias palpated Neuro General: patient oriented x3 and gait normal Cranial nerves: Yes Equal, round and reactive pupils present Psych Affect: normal affect Results AMB Urinalysis, Automated UA Leukoctes 0 Pari/uL Last Edit by Tiffanie Medrano CMA on 12/18/24 10:48 UA Nitrite Negative Last Edit by Tiffanie Medrano CMA on 12/18/24 10:48 UA Urobilinogen 0.2 mg/dL Last Edit by Tiffanie Medrano CMA on 12/18/24 10:48 UA Protein 0 mg/dL Last Edit by Tiffanie Medrano CMA on 12/18/24 10:48 UA pH 6.0 Last Edit by Tiffanie Medrano CMA on 12/18/24 10:48 UA Blood 0 Fredi/uL Last Edit by Tiffanie Medrano CMA on 12/18/24 10:48 UA Specific [place] 1.025 Last Edit by Tiffanie Medrano CMA on 12/18/24 10:48 UA Ketone Negative Last Edit by Tiffanie Medrano CMA on 12/18/24 10:48 UA Bilirubin 0 mg/dL Last Edit by Tiffanie Medrano CMA on 12/18/24 10:48 UA Glucose 0 mg/dL Last Edit by Tiffanie Medrano CMA on 12/18/24 10:48 Assessment & Plan Assessment & Plan (1) RLQ abdominal pain: Code(s): R10.31 - Right lower quadrant pain Plan: Quadrant pain x1 month. No nausea or vomiting No appetite suppression Will check ultrasound. Also checking CBC Start clear liquid diet/bowel rest Patient will follow-up with me on Friday and my office. Orders: Orders AMB Urinalysis Automated Today Z13.9 - Encounter for screening, unspecified US abdomen complete Today R10.31 - Right lower quadrant pain Complete Blood Count Auto Diff Today R10.31 - Right lower quadrant pain, Z00.00 - Encounter for general adult medical examination without abnormal findings Comprehensive Met. Panel Today R10.31 - Right lower quadrant pain Coding Level of Care Code Est Pt Level 3 (24682) Diagnoses RLQ abdominal pain R10.31
== END 2024-12-18 11:25 | disposition home or self-care (01) ==
LOC: HO.HMCWIC 09:14
PROVIDERS: PCP Family Medicine; Visit Provider Family Medicine
DX: Z13.9 Encounter for screening, unspecified (principal); R10.31 Right lower quadrant pain

== ENCOUNTER 2024-12-20 09:33 | Outpatient (REF) | payer BC, SELFPAY ==
--- NOTE | ~2024-12-20 | US_ITS ---
EXAMINATION: US ABDOMEN LIMITED HISTORY: RLQ PAIN COMPARISON: There are no prior studies for comparison. FINDINGS: Sonographic examination of the right lower quadrant of the abdomen was performed. The appendix is not identified. No free fluid is seen in the right lower quadrant. Incidental note is made of a cyst at the upper pole of the right kidney measuring 3.0 x 2.2 x 1.6 cm. US/US abdomen limited IMPRESSION: The appendix is not visualized. If there is clinical concern for acute appendicitis, CT is recommended. Electronically signed by: Kelechi Contreras MD 12/20/2024 10:32 AM EDT
== END 2024-12-20 09:34 | disposition home or self-care (01) ==
LOC: HO.US 09:33
PROVIDERS: PCP Family Medicine; Visit Provider Family Medicine
DX: R10.31 Right lower quadrant pain (principal)
CPT/HCPCS: 76705

== ENCOUNTER → 2024-12-20 09:36 | Outpatient (BNV) | payer BC, SELFPAY | PROVIDERS: PCP Family Medicine; Visit Provider Radiology Diagnostic Radiology | DX: R10.31 Right lower quadrant pain (principal) | CPT/HCPCS: 76705 ==

== ENCOUNTER 2024-12-20 11:58 | Outpatient (AMB) | payer BC, SELFPAY ==
--- NOTE | 2024-12-20 12:02 | MHC.PC.OV ---
Vital Signs 12/20/24 12:03 Height 6 ft 2 in Weight 184 lb 6 oz BMI 23.7 BP 102/70 Blood Pressure Location Rt brachial Position Sitting Respiration 14 Pulse 74 Pulse Source Pulse Oximeter Temp 98.1 F Temp Source Oral Pulse Oximetry (%) 96 Oxygen Delivery Method Room Air Intake Visit Reasons: US follow up Per Miranda Intake Note: u/s review [employer] Supervisor Required: No Allergies No Known Allergies [No Known Allergies*] Allergy (Verified 12/20/24 12:03) Medication List - Last Reconciled 12/20/24 by Sánchez Jean MD lisinopril 5 mg PO DAILY 90 days Tobacco use date assessed: 09/02/22 Dental Screening Dental Screen Date: 03/17/23 HPI US follow up Per Miranda HPI Details 59 y/o male presents today to f/u abd. ultrasound. Had complaints of RLQ abd pain x1 month. No nausea or vomiting. No appetite suppression. CBC was fine. Labs were fine. Had started him on a clear liquid diet, bowel rest. Per ultrasound note: Sonographic examination of the right lower quadrant of the abdomen was performed. The appendix is not identified. No free fluid is seen in the right lower quadrant. Incidental note is made of a cyst at the upper pole of the right kidney measuring 3.0 x 2.2 x 1.6 cm. Pt reports ongoing discomfort. [facility] Medical History HTN (hypertension) Surgical History History of thumb surgery S/P ACL repair S/P right inguinal hernia repair Social History Housing: House Patient Tobacco Use Status: Former Tobacco user e-Cigarette/Vaping Use: Never Used Second Hand Smoke Exposure: No service: No Current occupational status: employed Current occupational exposures/hazards: No Cognitive needs: No Hearing needs: No Vision needs: No Questionnaire Thrive Questionnaire Date Thrive assessed: 10/11/24 I am a: Patient What is your living situation today?: I have a steady place to live Within the past 12 months, did the food you bought not last and you didn't have the money to get more?: Never true Within the past 12 months, did you worry whether your food would run out before you got money to buy more?: Never true Do you have trouble paying for medicines?: No Do you have trouble getting transportation to medical appointments?: No Do you have trouble paying your heating and electricity bill?: No Do you have trouble taking care of your child, family member or friend?: No Do you have trouble with day-to-day activities such as bathing, preparing meals, shopping, managing finances, etc.?: No Are you currently unemployed and looking for a job?: No Are you interested in more education?: No Please select the resources that you would like help with: None Currently or been in a relationship where the following occur: No concerns reported THRIVE Score: 0 ADALBERTO-7 AMB Questionnaire ADALBERTO-7 Date ADALBERTO - 7 assessed: 12/06/24 Source: Developed by Drs. Kelechi Zapata, Anais Wilhelm, Peña Mccloud and colleagues, with an educational lorri from [employer]. Review of Systems Const Denies chills, Denies fatigue, Denies fever(s), Denies headache(s) and Denies weakness ENT Denies dizziness and Denies headache(s) Card Denies dyspnea Resp Denies cough, Denies dyspnea, Denies wheezing and Denies other (shortness of breath) Musc Denies numbness and Denies tingling Neuro Denies dizziness, Denies headache(s), Denies numbness, Denies tingling and Denies weakness Psych Denies anxiety and Denies depression Endo Denies fatigue Aller/Immun Denies wheezing Physical exam (Primary Care) Vital Signs: Last Vital Signs Temp 98.1 F 12/20/24 12:03 Pulse 74 12/20/24 12:03 Resp 14 12/20/24 12:03 BP 102/70 12/20/24 12:03 Pulse Ox 96 12/20/24 12:03 Oxygen Delivery Method Room Air 12/20/24 12:03 BMI result Body Mass Index 23.7 Tobacco/Smoking Status: Tobacco use Status Tobacco use date assessed 09/02/22 12/20/24 12:05 Patient Tobacco Use Status Former Tobacco user 12/20/24 12:05 e-Cigarette/Vaping Use Never Used 12/20/24 12:05 Thrive Assessment: Date of Thrive Assessment Date Thrive assessed 10/11/24 12/20/24 12:05 Currently or been in a relationship where the following occur: No concerns reported Const General: well developed; No acute distress Nutritional Appearance: well nourished Orientation/consciousness: patient oriented x3 [facility] Head: Yes normocephalic and Yes atraumatic Eyes General: appearance normal, both eyes and all related structures Pupils: Equal, round and reactive pupils present EOM: EOMs intact bilaterally Resp Effort & Inspection: normal respiratory effort Neuro General: patient oriented x3 and gait normal Cranial nerves: Yes Equal, round and reactive pupils present Psych Affect: normal affect Coding Level of Care Code Est Pt Level 3 (70203) Diagnoses RLQ abdominal pain R10.31 Renal cyst, right N28.1 Assessment & Plan Assessment & Plan (1) RLQ abdominal pain: Code(s): R10.31 - Right lower quadrant pain Category: Medical Plan: Ongoing?mild?right?lower?quadrant?abdominal?pain This?was?not?improved?with?bowel?rest. Pain?is?same?without?worsening. No?fevers?or?chills No?anorexia?or?nausea Not?significantly?changed?with?exertion?or?exercise?or?intake?or?bowel?movements. White?blood?cell?count?normal Urinalysis?and?other?lab?work?normal Unclear?cause Will?get?CT?scan Patient?also?had?incidental?finding?of?right?renal?cyst?which?can?also?be further evaluated?by CT (2) Renal cyst, right: Code(s): N28.1 - Cyst of kidney, acquired Category: Medical Plan: Ultrasound?showed?incidental?right?renal?cyst. Discussed?with?patient?that?this?is?not?a?likely?cause?of?his?discomfort?but?should?be?followed?up Already?ordering?CT?scan?to?continue?evaluation?for?right?lower?quadrant?pain. ?Will?also?discuss?renal?cyst?eval with?patient?after?CT Orders: Orders CT abdomen pelvis wo/w IV con Today N28.1 - Cyst of kidney, acquired, R10.31 - Right lower quadrant pain
[2024-12-20 12:03] VITALS: BP 102/70; PULSE 74; RESP 14; TEMP 36.7; O2SAT 96; BMI 23.7
== END 2024-12-20 13:04 | disposition home or self-care (01) ==
LOC: HO.HMCFM 11:59
PROVIDERS: PCP Family Medicine; Visit Provider Family Medicine
DX: R10.31 Right lower quadrant pain (principal); N28.1 Cyst of kidney, acquired

== ENCOUNTER 2025-01-29 07:43 | Outpatient (REF) | payer BC, SELFPAY ==
[2025-01-29 08:49] LABS: Estimated Average Glucose 108 mg/dL; Hemoglobin A1C 135.5254 umol/L; Hemoglobin A1c % 5.4 % (<6.0)
[2025-01-29 09:07] LABS: Alanine Aminotransferase 25 U/L (0-40); Albumin Level 4.4 g/dL (3.5-5.0); Alkaline Phosphatase 58 U/L (39-117); Anion Gap 10 (12-20); Aspartate Amino Transferase 28 U/L (5-37); Bilirubin Total 0.5 mg/dL (0.0-1.0); Blood Urea Nitrogen 18 mg/dL (9-16); Calcium 8.8 mg/dL (8.4-10.2); Carbon Dioxide 25 mmol/L (22-29); Chloride 108 mmol/L (96-108); Cholesterol 173 mg/dL (<200); Estimated Glomerular Filt Rate > 60; Glucose Fasting 95 mg/dL (60-99); HDL Cholesterol 50 mg/dL (>40); LDL Cholesterol Calculated 112 mg/dL (<100); Potassium 3.8 mmol/L (3.3-5.1); Sodium 139 mmol/L (135-145); Total Protein 6.9 g/dL (6.5-8.0); Triglycerides 58 mg/dL (<150)
[2025-01-29 09:43] LABS: Creatinine Urine 156.24 mg/dL; Microalbum/Creatinine Ratio Ur 3.2 ug/mg cr (<30)
== END 2025-01-29 07:44 | disposition home or self-care (01) ==
LOC: HO.LAB 07:43
PROVIDERS: PCP Family Medicine; Visit Provider Family Medicine
DX: E78.00 Pure hypercholesterolemia, unspecified (principal); I10 Essential (primary) hypertension; R73.03 Prediabetes; Z00.00 Encounter for general adult medical examination without abnormal findings
CPT/HCPCS: 36415; 80053; 80061; 82043; 82570; 83036

== ENCOUNTER 2025-04-04 10:47 | Outpatient (AMB) | payer BC, SELFPAY ==
[2025-04-04 10:49] VITALS: BP 120/74; PULSE 71; O2SAT 96; BMI 24.2
--- NOTE | 2025-04-04 10:49 | MHC.PC.OV ---
Vital Signs 04/04/25 10:49 Height 6 ft 2 in Weight 188 lb 4 oz BMI 24.2 BP 120/74 Blood Pressure Location Rt brachial Position Sitting Pulse 71 Pulse Source Pulse Oximeter Pulse Oximetry (%) 96 Oxygen Delivery Method Room Air Intake Visit Reasons: f/u lipids, preDM Allergies No Known Allergies (No Known Allergies*) Allergy (Verified 04/04/25 10:52) Medication List - Last Reconciled 04/04/25 by Sánchez Jean MD lisinopril 5 mg PO DAILY 90 days Tobacco use date assessed: 04/04/25 Dental Screening Dental Screen Date: 04/04/25 Did you have a dental visit in the last 12 months?: Yes Did you have a dental problem in the last 6 months where you did not have access to dental care?: No Was dental information given to patient?: Patient has dentist HPI f/u lipids, preDM HPI Details 59 y/o male presents to f/u prediabetes, lipids. Labs drawn 01/29/25. Reviewed labs with pt. Triglycerides 58. TC 173. LDL 112. HDL 50. BP today 120/74, 71p. He is on lisinopril 5mg daily. CT scan ordered for abd. pain and renal cyst. Ongoing RLQ pain. Insurance had declined CT scan. A1c today 5.4%. [facility] Medical History HTN (hypertension) Surgical History History of thumb surgery S/P right inguinal hernia repair S/P ACL repair Social History Housing: House Patient Tobacco Use Status: Former Tobacco user e-Cigarette/Vaping Use: Never Used Second Hand Smoke Exposure: No service: No Current occupational status: employed Current occupational exposures/hazards: No Cognitive needs: No Hearing needs: No Vision needs: No Questionnaire PHQ-9 Over the last 2 weeks, how often have you been bothered by any of the following problems? 1. Little interest or pleasure in doing things: not at all 2. Feeling down, depressed, or hopeless: not at all 3. Trouble falling or staying asleep, or sleeping too much: not at all 4. Feeling tired or having little energy: not at all 5. Poor appetite or overeating: not at all 6. Feeling bad about yourself - or that you are a failure or have let yourself or your family down: not at all 7. Trouble concentrating on things, such as reading the newspaper or watching television: not at all 8. Moving or speaking so slowly that other people could have noticed. Or the opposite - being so fidgety or restless that you have been moving around a lot more than usual: not at all 9. Thoughts that you would be better off or of hurting yourself in some way: not at all Total score: 0 Depression Screening Interpretation: Negative Depression Screening Done: Yes Source: Developed by Drs. Kelechi Zapata, Anais Wilhelm, Peña Mccloud and colleagues, with an educational lorri from [employer]. Thrive Questionnaire Date Thrive assessed: 10/11/24 I am a: Patient What is your living situation today?: I have a steady place to live Within the past 12 months, did the food you bought not last and you didn't have the money to get more?: Never true Within the past 12 months, did you worry whether your food would run out before you got money to buy more?: Never true Do you have trouble paying for medicines?: No Do you have trouble getting transportation to medical appointments?: No Do you have trouble paying your heating and electricity bill?: No Do you have trouble taking care of your child, family member or friend?: No Do you have trouble with day-to-day activities such as bathing, preparing meals, shopping, managing finances, etc.?: No Are you currently unemployed and looking for a job?: No Are you interested in more education?: No Please select the resources that you would like help with: None Currently or been in a relationship where the following occur: No concerns reported THRIVE Score: 0 AUDIT C Alcohol Use Questionnaire (AUDIT-C) 1. How often do you have a drink containing alcohol?: 2-3 times a week 2. How many drinks containing alcohol do you have on a typical day when you are drinking?: 1 or 2 3. How often do you have six or more drinks on one occasion?: Less than monthly Total Score: 4 ADALBERTO-7 AMB Questionnaire ADALBERTO-7 Date ADALBERTO - 7 assessed: 12/06/24 Feeling nervous, anxious, or on edge: 0 = Not at all Not being able to stop or control worryin = Not at all Worrying too much about different things: 0 = Not at all Trouble relaxin = Not at all Being so restless that it is hard to sit still: 0 = Not at all Becoming easily annoyed or irritable: 0 = Not at all Feeling afraid as if something awful might happen: 0 = Not at all Total ADALBERTO-7 score (0-4 normal; 5-9 mild; 10-14 moderate; 15-21 severe): 0 Source: Developed by Drs. Kelechi Zapata, Anasi Wilhelm, Peña Mccloud and colleagues, with an educational lorri from [employer]. Review of Systems Const Denies chills, Denies fatigue, Denies fever(s), Denies headache(s) and Denies weakness ENT Denies dizziness and Denies headache(s) Card Denies dyspnea Resp Denies cough, Denies dyspnea, Denies wheezing and Denies other (shortness of breath) Musc Denies numbness and Denies tingling Neuro Denies dizziness, Denies headache(s), Denies numbness, Denies tingling and Denies weakness Psych Denies anxiety and Denies depression Endo Denies fatigue Aller/Immun Denies wheezing Physical exam (Primary Care) Vital Signs: Last Vital Signs Pulse 71 04/04/25 10:49 BP 120/74 04/04/25 10:49 Pulse Ox 96 04/04/25 10:49 Oxygen Delivery Method Room Air 04/04/25 10:49 BMI result Body Mass Index 24.2 Tobacco/Smoking Status: Tobacco use Status Tobacco use date assessed 04/04/25 04/04/25 10:53 Patient Tobacco Use Status Former Tobacco user 04/04/25 10:53 e-Cigarette/Vaping Use Never Used 04/04/25 10:53 PHQ-9: PHQ-9 Score PHQ-9: Total score 0 04/04/25 11:03 Depression Screening Interpretation: Negative Thrive Assessment: Date of Thrive Assessment Date Thrive assessed 10/11/24 04/04/25 10:53 Currently or been in a relationship where the following occur: No concerns reported Const General: well developed; No acute distress Nutritional Appearance: well nourished Orientation/consciousness: patient oriented x3 HENMT Head: Yes normocephalic and Yes atraumatic Eyes General: appearance normal, both eyes and all related structures Pupils: Equal, round and reactive pupils present EOM: EOMs intact bilaterally Resp Effort & Inspection: normal respiratory effort Neuro General: patient oriented x3 and gait normal Cranial nerves: Yes Equal, round and reactive pupils present Psych Affect: normal affect Coding Level of Care Code Est Pt Level 4 (06386) Diagnoses HTN (hypertension) I10 Elevated LDL cholesterol level E78.00 Pre-diabetes R73.03 RLQ abdominal pain R10.31 Renal cyst, right N28.1 Assessment & Plan Assessment & Plan (1) HTN (hypertension): Code(s): I10 - Essential (primary) hypertension Category: Medical Plan: BP controlled Cont current medication (2) Elevated LDL cholesterol level: Code(s): E78.00 - Pure hypercholesterolemia, unspecified Category: Medical Plan: LDL cholesterol is still too high Continue working on diet lower in saturated fats and cholesterol Will continue to monitor (3) Pre-diabetes: Code(s): R73.03 - Prediabetes Category: Medical Plan: A1c improved to 5.4% Continue working at a diet low in sugars and starches. Will monitor (4) RLQ abdominal pain: Code(s): R10.31 - Right lower quadrant pain Category: Medical Plan: Ongoing right lower quadrant pain. Ultrasound did not show any cause for discomfort Had ordered CTs again but insurance declined this stating that he did not need a CT scan for a renal cyst though this was not the indication for the test. Fortunately for the patient, the pain has been gradually improving. On repeat exam, pain is diminished in says that it has been improving with resting from the gym This may represent a muscle strain such as psoas muscle strain He would like to try some physical therapy He will let me know if this worsens in any way-would pursue CT scan again. (5) Renal cyst, right: Code(s): N28.1 - Cyst of kidney, acquired Category: Medical Plan: Had seen right renal cyst on ultrasound. This is not likely to be any cause for his pain. Had expected to have further evaluation of cyst with the CT scan for right lower quadrant pain. However CT scan was denied-see above. Will get ultrasound follow-up to re-evaluate cyst more stability. Orders: Orders PT Evaluation and Treatment Today R10.31 - Right lower quadrant pain LDL Cholesterol Direct Today E78.00 - Pure hypercholesterolemia, unspecified, E78.5 - Hyperlipidemia, unspecified Comprehensive [place]. Panel Fast Today E78.00 - Pure hypercholesterolemia, unspecified, Z00.00 - Encounter for general adult medical examination without abnormal findings Hemoglobin A1c Today R73.01 - Impaired fasting glucose, R73.03 - Prediabetes renal BI 01/02/26 N28.1 - Cyst of kidney, acquired
== END 2025-04-04 11:15 | disposition home or self-care (01) ==
LOC: HO.HMCFM 10:48
PROVIDERS: PCP Family Medicine; Visit Provider Family Medicine
DX: I10 Essential (primary) hypertension (principal); E78.00 Pure hypercholesterolemia, unspecified; R73.03 Prediabetes; R10.31 Right lower quadrant pain; N28.1 Cyst of kidney, acquired